=== PATIENT | female | born 2005 | race Caucasian/White ===

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

== ENCOUNTER → 2023-04-05 | Outpatient (CLI) | payer OTHER ==
[~2023-04-05] MED LIST changes: +ACET325 PO; +DOCU100 PO; +HYDR1TAB94 PO
== END | disposition home or self-care (01) ==
LOC: LAB SHORT 11:54 → LAB 11:54
DX: J02.9 Acute pharyngitis, unspecified (principal)
CPT/HCPCS: 87081